=== PATIENT | female | born 1995 | race Two or more races ===

== ENCOUNTER 2025-06-13 03:27 | Emergency (ER) | payer MEDICAID, OTHER ==
[~2025-06-13] VITALS: Ht 157.5 cm; Wt 55.2 kg
--- NOTE | 2025-06-13 04:40 | ED.PDOC ---
History of Present Illness(SKN HPI Comments Pt presents to ED with laceration that occurred 3 days ago. Pt reported she was in the shower and cut the bottom of her left foot on a plastic bottle. Pt closed the laceration with an at-home wound kit, but tonight the laceration split open again. Pt reports approximately 3-4 cm in length. Chief Complaint: Laceration Time Seen by MD: 03:29 History of Present Illness: Nurses Notes, Medications, Allergies Allergies: Coded Allergies: No Known Drug Allergy (Verified Allergy, Unknown, 06/13/25) Information Source: Patient Mode of Arrival: Ambulatory Past Medical History PAST MEDICAL HISTORY: Denies Surgical History: Denies all surgeries PORTFOLIO MANAGER History: No Pertinent PORTFOLIO MANAGER History Family History Family History: Unknown Social History Smoker: Non-Smoker Alcohol: Denies ETOH Use Drugs: Denies Drug Use All Other Systems: Reviewed and Negative (see hpi) Physical Exam General Appearance: No Apparent Distress, Normal HEENT: Pharynx Normal Neck: Full Range of Motion, Non-Tender Respiratory: Lungs Clear, No Respiratory Distress, Normal Breath Sounds Cardiovascular: No Murmur, Normal Peripheral Pulses, Regular Rate/Rhythm Breast Exam: Deferred Gastrointestinal: Non Tender, Soft Genitalia: Deferred Pelvic: Deferred Rectal: Deferred Extremities: Normal capillary refill, Normal range of motion, No pedal edema Musculoskeletal : Apperance: Normal Neurologic: Alert, No Motor Deficits, Normal Affect, Normal Mood, No Sensory Deficits Cerebellar Function: Normal Reflexes: NOT DONE Skin: Dry, Lacerations (1.5 inch superficial laceration to left foot plantar aspect foreign body bleeding controlled), Normal Color, Warm Lymphatic: No Adenopathy Was a procedure done? Was a procedure done?: Yes Sedation Sedation?: No Informed consent obtained: Yes Laceration Repair : Location left foot plantar aspect Length 1.5 in Anesthetic: Nothing Laceration Repair Prep: Saline, by Irrigation Laceration Repair Wound Comple: epidermis/dermis repair Laceration Repair: Gauze Informed consent obtained: Yes Risks, benefits, and alternati: Yes Notes Three Steri-Strips Differential Diagnosis (INTG) Differential Diagnosis: Cellulitis, Hematoma, Laceration, Puncture Wound Differential Diagnosis: Abscess X-Ray, Labs, Meds, VS Vital Signs Date Time Temp Pulse Resp B/P (MAP) Pulse Ox O2 Delivery O2 Flow Rate FiO2 06/13/25 03:29 98.5 85 18 119/81 97 98.5 X-Ray, Labs, Meds, VS Comment Script trial of antibiotics . Advised to take medication as prescribed side effects discussed. Advised to follow up with his PCP in two days, urgent care, or back in the ER for wound re-evaluation. Advised to keep dressing on, and clean change twice daily. Patient was also advised to return to the ER for increasing pain, numbness, weakness, swelling, fever or chills. Patient indicates understanding and agrees with discharge plan of care. Time of 1ST Reevaluation: 03:29 Reevaluation 1ST: Unchanged Time of 2ND Reevaluation: 04:40 Reevaluation 2ND: Improved Patient Education/Counseling: Diagnosis, Treatment, Need For Follow Up Family Education/Counseling: Diagnosis, Treatment SEPSIS Sepsis Screen Date sepsis recognized/suspect: Jun 13, 2025 Time Sepsis recognized/suspect: 330 Recent Procedure: No On Antibiotic Therapy: No Respiratory Rate >20: No Heart Rate >90: No Temp<36 C (96.8 F) or >38.3 C: No SBP <90 or MAP <65 mmHG: No New Acute Mental Status Change: No Is the patient on CPAP, BIPAP,: No Vital Signs Date Time Temp Pulse Resp B/P (MAP) Pulse Ox O2 Delivery O2 Flow Rate FiO2 06/13/25 03:29 98.5 85 18 119/81 97 98.5 Departure 1 Departure Time of Disposition: 04:39 Impression: Primary Impression: Laceration of foot excluding toes Qualified Codes: S91.312A - Laceration without foreign body, left foot, initial encounter Disposition: 01 HOME / SELF CARE / HOMELESS Condition: Stable e-Prescriptions Amoxicillin & Pot Clavulanate (AUGMENTIN TABLET) 875 Mg Tb 875 MG PO BID for 5 Days, #10 TAB Prov: PARISH JOYNER 06/13/25 Discharged With: Relative (Mother) Critical Care Note Critical Care Time?: No Stability Stability form required: PARISH Pappas Jun 13, 2025 04:40
[2025-06-13] MEDS ORDERED: AUG875T PO (04:42)
[2025-06-13 05:03] VITALS: BP 10/63; PULSE 79; RESP 17; TEMP 97.7; O2SAT 96
== END 2025-06-13 05:03 | disposition home or self-care (01) ==
LOC: ER 03:27
DX: S91.312A Laceration without foreign body, left foot, initial encounter (principal); W26.8XXA Contact with other sharp object(s), not elsewhere classified, initial encounter; Y93.E1 Activity, personal bathing and showering; Y92.89 Other specified places as the place of occurrence of the external cause; Y99.8 Other external cause status